=== PATIENT | male | born 1970 | race Caucasian/White ===

== ENCOUNTER 2017-04-26 19:28 | Emergency (ER) | payer OTHER ==
[~2017-04-26 19:28] MED LIST: PRILOSEC40 MG PO
--- NOTE | 2017-04-26 20:18 | ED ORDER SUMMARY ---
..... Patient: SAGRARIO TOVAR [facility]Sheet [facility] VisitID: [id number] [place] [address] 46y, M Registration Date/Time: 04/26/2017 ORDER SHEET Weight: 69.8 kg (stated) Allergies: No Known Drug Allergy GENERAL ORDERS: Eye Irrigation (20:09 04/26/2017 Betzaida SHER) (20:14 JBoardley R.N.) MEDICATION ORDERS: Alcaine Eye Drops (Solution 0.5 %) 2 drops (NOW, affected eye, left eye) (19:55 04/26/2017 kumar SHER) (Ack 19:56 JBoardley R.N.) (20:03 JBoardley R.N.) Fluorescein Eye Strips 1 strips (NOW) (19:55 [facility]2017 [facility] (Ack 19:56 JBoardley R.N.) (20:04 JBoardley R.N.) Tdap IM 0.5 mL (NOW, per protocol) (20:04 04/26/2017 JBoardley R.N. per protocol) (20:07 JBoardley R.N.) IV FLUIDS: ORDER SHEET NOTES: [Electronically signed by Grant Fitzpatrick R.N. (20:32 04/26/2017)] [Electronically signed by Tamir Hoffman DO (09:34 04/27/2017)] [Electronically locked/signed by Grant Fitzpatrick R.N. (20:32 04/26/2017)]
--- NOTE | 2017-04-26 20:18 | ED NURSING NOTES ---
Clinical Report - Nurses [facility] [address] [place] [address] 04/26/2017 19:29 [id number] TRI[facility] Triage time 19:53. Acuity: LEVEL 4. Chief Complaint: REDNESS, PAIN and FOREIGN BODY TO LEFT EYE. 19:54 04/26/17. 19:54 04/26/17. VISUAL ACUITY: Visual acuity performed: left eye 20/50 minus one letter; right eye 20/50; both eyes 20/40 minus one letter. --20:04 Grant Fitzpatrick R.N. 20:04 04/26/17. BP: 144/79. HR: 89. RR: 18. O2 saturation: 98% on room air. Temp: 98.1 F (oral). Pain level now: 02/20. --20:04 Grant Fitzpatrick R.N. Weight: 69.8 kg stated. Height/Length: 69 inches Per Patient. BMI: 22.7. --19:54 Grant Fitzpatrick R.N. Medications Omeprazole Oral. --19:55 Grant Fitzpatrick R.N. Medication/allergy information source: the patient. --20:04 Grant Fitzpatrick R.N. Allergies No Known Drug Allergy. --19:55 Grant Fitzpatrick R.N. History Arrived by private vehicle. Historian: patient. Accompanied by family. Primary physician (NONE). 19:54 04/26/17. He may have sustained an injury. 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 He has had eye discomfort. 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 SOCIAL HX: Light tobacco smoker (cigarette)- less than 1/2 a pack per day. Regular alcohol use. History of occasional drug use: marijuana. No infectious disease exposure. ABUSE ASSESSMENT: No report of abuse. FALL RISK ASSESSMENT: Fall risk assessment completed. No fall risk identified. NUTRITIONAL RISK ASSESSMENT: The nutritional risk assessment revealed no deficiencies. FUNCTIONAL ASSESSMENT: Functional assessment: no impairments noted. LEARNING NEEDS ASSESSMENT: The learning needs assessment revealed no barriers. SKIN INTEGRITY ASSESSMENT: Skin integrity risk assessment completed. No skin integrity risk identified. --20:04 Grant Fitzpatrick R.N. PAST MEDICAL HX: Immunizations: status is unknown. --20:04 Grant Fitzpatrick R.N. PROBLEMS: Costochondritis. GI Disease. Diverticulitis. Back Pain. Sciatica. Myofascial Strain. Lipoma. Sprain. Lower Extremity Pain. Atypical Chest Pain. Cellulitis. Lifestyle / Substance Problems. Last Tetanus. Tendonitis. Healing Abscess. Abscess. Acute Pain. Immunizations. Abrasion(s). Tetanus Status. Fall. Contusion. --19:55 Grant Fitzpatrick R.N. ADDITIONAL SURGERIES: Shoulder Surgery. --19:55 Grant Fitzpatrick R.N. Assessment 19:54 04/26/17. --20:04 Grant Fitzpatrick R.N. Interventions 19:54 04/26/17. 19:54 04/26/17. ID and allergy band on patient. To treatment room. --20:04 Grant Fitzpatrick R.N. PHYSICAL ASSESSMENT 19:56 04/26/17. Ambulatory to room. GENERAL / NEURO / PSYCH: Appears in pain. HEENT: ( Left eye with redness noted). CVS: Capillary refill less than 2 seconds. SKIN: Skin is warm and dry. --19:56 Grant Fitzpatrick R.N. NURSING PROGRESS NOTES 19:56 04/26/17. Two patient identifiers checked. Call light placed in reach. Side rails up x 2. Bed placed in lowest position. Brakes of bed on. --19:56 Grant Fitzpatrick R.N. 19:56 04/26/17. The plan of care for this patient has been created. Head of bed elevated. Reassurance given. Patient ready for evaluation- chart flagged and notification provided. --19:56 Grant Fitzpatrick R.N. 20:03 04/26/2017 Alcaine (Proparacaine HCl) Eye Drops 2 drop given. Given in the left eye. Allergies verified and confirmed 5 rights. (by ). --20:03 Grant Fitzpatrick R.N. 20:04/26/2017 FLUORESCEIN Opth soln 1 Strip given. Given in the left eye. Allergies verified and confirmed 5 rights. (by ). --20:04 Grant Fitzpatrick R.N. 20:07 04/26/2017 TDAP IM 0.5 mL given. (Lot#: [id number], expiration date: 03/23/2019, [employer] Instructor: sanofi pasteur). Given in the right deltoid. Allergies verified and confirmed 5 rights. Vaccine information statement provided to the patient. --20:07 Grant Fitzpatrick R.N. 20:16 04/26/17. Irrigated left eye with normal saline. Patient tolerated procedure well. --20:16 Alanis Langley, ER Tech1. DISPOSITION / DISCHARGE 20:24 04/26/17. Condition at departure: improved. The goals identified in the patient's plan of care were met. No learning barriers present. Discharge instructions provided and reviewed with the patient. Reviewed warnings. Reviewed medication(s). Treatments reviewed. Reviewed referral to an card clothier. Patient verbalized understanding. Written instructions provided in Stateless. The patient was discharged by the physician. He was discharged home and accompanied by family. He left the Emergency Department ambulatory and via private vehicle. Family member driving. FALL RISK ASSESSMENT: Fall risk assessment completed. No fall risk identified. --20:24 Grant Fitzpatrick R.N. 20:23 04/26/17. BP: 132/76. HR: 88. RR: 16. O2 saturation: 98% on room air. Temp: 98.3 F (oral). --20:24 Grant Fitzpatrick R.N. Departure time: 20:24. --20:24 Grant Fitzpatrick R.N. Locked/Released at 04/26/2017 20:32 by Grant Fitzpatrick R.N.
--- NOTE | 2017-04-26 20:18 | ED CLINICAL REPORT ---
Clinical Report - Physicians/Mid Levels [facility] [address] [place] [address] 04/26/2017 19:29 [id number] Time Seen: 19:54. Arrived- By private vehicle. Historian- patient. HISTORY OF PRESENT ILLNESS Chief Complaint: EYE REDNESS, IRRITATION and FOREIGN BODY. This started today about 1400, involves the left eye, is characterized as moderate in severity and has been constant and is still present. The patient sustained injury. This occurred at work. He probably has metallic foreign material in the left eye that fell from overhead and from grinding (states he was wearing eye protection). Moderate left eye discomfort. Moderate left eye redness. Moderate left eye irritation. REVIEW OF SYSTEMS No fever, sore throat or cough. PAST HISTORY See nurses notes. GI Disease. Diverticulitis. Back Pain. Sciatica. Myofascial Strain. Lipoma. Sprain. Lower Extremity Pain. Atypical Chest Pain. Cellulitis. Lifestyle / Substance Problems. Tendonitis. Healing Abscess. Abscess. Acute Pain. Abrasion(s). Fall. SURGERIES: Shoulder Surgery. He does not wear contact lenses. No history of diabetes mellitus. Tetanus immunization status is unknown. SOCIAL HISTORY Smoker- current status unknown. Regular alcohol use. History of drug use: marijuana. ADDITIONAL NOTES The nursing notes have been reviewed. PHYSICAL EXAM Vital Signs: 04/26/2017 20:04 BP: 144/79. HR: 89. RR: 18. O2 saturation: 98%. Temp: 98.1 F. Pain level now: 4/10. Appearance: Alert. Oriented X3. Patient in mild distress. HEENT: Nose normal. Pharynx normal. Head appears normal to external inspection. Rt Eye: Right eye exam normal. Eyes: Visual acuity noted- see nurse's notes. Eyelids everted for examination. Eyelids appear normal to inspection. Pupils equal, round and reactive to light. Funduscopic exam normal. EOMs intact. Periorbital areas appear normal to inspection. Left eye examined with slit lamp. Anterior chambers clear. Anterior chambers of normal depth. Lt Eye: Mildly injected conjunctiva. A single small particulate corneal foreign body is present inferiorly and laterally. No subconjunctival hemorrhage, conjunctival foreign body or injury to the sclera. Neck: Neck supple. Normal inspection. CVS: Normal heart rate and rhythm. Heart sounds normal. Respiratory: No respiratory distress. Breath sounds normal. Skin: No rash. Extremities: Extremities negative. Neuro: Oriented X 3. Mood/affect normal. No motor deficit. PROGRESS AND PROCEDURES Removal of Eye Foreign Body: After topical anesthesia with 2 drops of Proparacaine, a single foreign body was successfully removed from the left cornea using the slit lamp (with magnification), a moistened sterile cotton swab and irrigation, fluorescein and a Wood's lamp. There were no complications encountered. The patient was cooperative. Course of Care: Very tiny particulate removed o/w no evident injury. No evident globe penetration. He was wearing eye protection and thus high velocity injury is unlikely. Patient/family counseled. Old medical records reviewed. Patient has had multiple ED visits. Disposition: Discharged. Condition: stable and improved. CLINICAL IMPRESSION Removed corneal foreign body left eye. No rust ring. Essential hypertension. Chronic substance abuse- tobacco (cigarettes), marijuana. No intoxication, delusions, hallucinations or perceptual disturbances. INSTRUCTIONS Rest. Do not work for two days. Drink plenty of fluids. Do not smoke. Seek medical help to quit smoking. Warnings: Further evaluation is necessary in order to conduct further tests. It is very important to follow up with a physician. CONTROLLED SUBSTANCE WARNINGS. GENERAL WARNINGS: Return or contact your physician immediately if your condition worsens or changes unexpectedly, if not improving as expected, or if other problems arise. Your Current Medications: CONTINUE TAKING THE FOLLOWING MEDICATIONS: Omeprazole Oral. Prescription Medications: Hydrocodone/APAP 5mg / 325mg: take 1-2 orally every 6 hours as needed for pain. Dispense ten (10). No refill. Sulfacetamide ophthalmic solution 10% : Instill 2 drops into affected eye every 2 hours while awake for 1 week. Dispense fifteen (15) mL. No refills. OTC Medications: Motrin (available over the counter): take according to label instructions. Follow-up: Screening today revealed the patient's blood pressure to be in the hypertensive range. The patient should follow up with a primary care provider for blood pressure management. Follow-up with: Andre Stubbs MD, Ophthalmology, , [facility], [address] [place] [address]; Debra Morales MD, Ophthalmology, [facility], [address] [place] [address] - [address], [place] [id number] Follow up tomorrow if not better. (Electronically signed by Tamir Hoffman DO 04/27/2017 9:34)
--- NOTE | 2017-04-26 20:18 | ED CLINICAL REPORT ---
Clinical Report - Physicians/Mid Levels [facility] [address] [place] [address] 04/26/2017 19:29 [id number] Time Seen: 19:54. Arrived- By private vehicle. Historian- patient. HISTORY OF PRESENT ILLNESS Chief Complaint: EYE REDNESS, IRRITATION and FOREIGN BODY. This started today about 1400, involves the left eye, is characterized as moderate in severity and has been constant and is still present. The patient sustained injury. This occurred at work. He probably has metallic foreign material in the left eye that fell from overhead and from grinding (states he was wearing eye protection). Moderate left eye discomfort. Moderate left eye redness. Moderate left eye irritation. REVIEW OF SYSTEMS No fever, sore throat or cough. PAST HISTORY See nurses notes. GI Disease. Diverticulitis. Back Pain. Sciatica. Myofascial Strain. Lipoma. Sprain. Lower Extremity Pain. Atypical Chest Pain. Cellulitis. Lifestyle / Substance Problems. Tendonitis. Healing Abscess. Abscess. Acute Pain. Abrasion(s). Fall. SURGERIES: Shoulder Surgery. He does not wear contact lenses. No history of diabetes mellitus. Tetanus immunization status is unknown. SOCIAL HISTORY Smoker- current status unknown. Regular alcohol use. History of drug use: marijuana. ADDITIONAL NOTES The nursing notes have been reviewed. PHYSICAL EXAM Vital Signs: 04/26/2017 20:04 BP: 144/79. HR: 89. RR: 18. O2 saturation: 98%. Temp: 98.1 F. Pain level now: 4/10. Appearance: Alert. Oriented X3. Patient in mild distress. HEENT: Nose normal. Pharynx normal. Head appears normal to external inspection. Rt Eye: Right eye exam normal. Eyes: Visual acuity noted- see nurse's notes. Eyelids everted for examination. Eyelids appear normal to inspection. Pupils equal, round and reactive to light. Funduscopic exam normal. EOMs intact. Periorbital areas appear normal to inspection. Left eye examined with slit lamp. Anterior chambers clear. Anterior chambers of normal depth. Lt Eye: Mildly injected conjunctiva. A single small particulate corneal foreign body is present inferiorly and laterally. No subconjunctival hemorrhage, conjunctival foreign body or injury to the sclera. Neck: Neck supple. Normal inspection. CVS: Normal heart rate and rhythm. Heart sounds normal. Respiratory: No respiratory distress. Breath sounds normal. Skin: No rash. Extremities: Extremities negative. Neuro: Oriented X 3. Mood/affect normal. No motor deficit. PROGRESS AND PROCEDURES Removal of Eye Foreign Body: After topical anesthesia with 2 drops of Proparacaine, a single foreign body was successfully removed from the left cornea using the slit lamp (with magnification), a moistened sterile cotton swab and irrigation, fluorescein and a Wood's lamp. There were no complications encountered. The patient was cooperative. Course of Care: Very tiny particulate removed o/w no evident injury. No evident globe penetration. He was wearing eye protection and thus high velocity injury is unlikely. Patient/family counseled. Old medical records reviewed. Patient has had multiple ED visits. Disposition: Discharged. Condition: stable and improved. CLINICAL IMPRESSION Removed corneal foreign body left eye. No rust ring. Essential hypertension. Chronic substance abuse- tobacco (cigarettes), marijuana. No intoxication, delusions, hallucinations or perceptual disturbances. INSTRUCTIONS Rest. Do not work for two days. Drink plenty of fluids. Do not smoke. Seek medical help to quit smoking. Warnings: Further evaluation is necessary in order to conduct further tests. It is very important to follow up with a physician. CONTROLLED SUBSTANCE WARNINGS. GENERAL WARNINGS: Return or contact your physician immediately if your condition worsens or changes unexpectedly, if not improving as expected, or if other problems arise. Your Current Medications: CONTINUE TAKING THE FOLLOWING MEDICATIONS: Omeprazole Oral. Prescription Medications: Hydrocodone/APAP 5mg / 325mg: take 1-2 orally every 6 hours as needed for pain. Dispense ten (10). No refill. Sulfacetamide ophthalmic solution 10% : Instill 2 drops into affected eye every 2 hours while awake for 1 week. Dispense fifteen (15) mL. No refills. OTC Medications: Motrin (available over the counter): take according to label instructions. Follow-up: Screening today revealed the patient's blood pressure to be in the hypertensive range. The patient should follow up with a primary care provider for blood pressure management. Follow-up with: Andre Stubbs MD, Ophthalmology, , [facility], [address] [place] [address]; Debra Morales MD, Ophthalmology, [facility], [address] [place] [address] - [address], [place] [address] Follow up tomorrow if not better. (Electronically signed by Tamir Hoffman DO 04/27/2017 9:34)
--- NOTE | 2017-04-26 20:18 | ED NURSING NOTES ---
Clinical Report - Nurses [facility] [address] [place] [address] 04/26/2017 19:29 [id number] TRI[facility] Triage time 19:53. Acuity: LEVEL 4. Chief Complaint: REDNESS, PAIN and FOREIGN BODY TO LEFT EYE. 19:54 04/26/17. 19:54 04/26/17. VISUAL ACUITY: Visual acuity performed: left eye 20/50 minus one letter; right eye 20/50; both eyes 20/40 minus one letter. --20:04 Grant Fitzpatrick R.N. 20:04 04/26/17. BP: 144/79. HR: 89. RR: 18. O2 saturation: 98% on room air. Temp: 98.1 F (oral). Pain level now: 02/20. --20:04 Grant Fitzpatrick R.N. Weight: 69.8 kg stated. Height/Length: 69 inches Per Patient. BMI: 22.7. --19:54 Grant Fitzpatrick R.N. Medications Omeprazole Oral. --19:55 Grant Fitzpatrick R.N. Medication/allergy information source: the patient. --20:04 Grant Fitzpatrick R.N. Allergies No Known Drug Allergy. --19:55 Grant Fitzpatrick R.N. History Arrived by private vehicle. Historian: patient. Accompanied by family. Primary physician (NONE). 19:54 04/26/17. He may have sustained an injury. 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 He has had eye discomfort. 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 SOCIAL HX: Light tobacco smoker (cigarette)- less than 1/2 a pack per day. Regular alcohol use. History of occasional drug use: marijuana. No infectious disease exposure. ABUSE ASSESSMENT: No report of abuse. FALL RISK ASSESSMENT: Fall risk assessment completed. No fall risk identified. NUTRITIONAL RISK ASSESSMENT: The nutritional risk assessment revealed no deficiencies. FUNCTIONAL ASSESSMENT: Functional assessment: no impairments noted. LEARNING NEEDS ASSESSMENT: The learning needs assessment revealed no barriers. SKIN INTEGRITY ASSESSMENT: Skin integrity risk assessment completed. No skin integrity risk identified. --20:04 Grant Fitzpatrick R.N. PAST MEDICAL HX: Immunizations: status is unknown. --20:04 Grant Fitzpatrick R.N. PROBLEMS: Costochondritis. GI Disease. Diverticulitis. Back Pain. Sciatica. Myofascial Strain. Lipoma. Sprain. Lower Extremity Pain. Atypical Chest Pain. Cellulitis. Lifestyle / Substance Problems. Last Tetanus. Tendonitis. Healing Abscess. Abscess. Acute Pain. Immunizations. Abrasion(s). Tetanus Status. Fall. Contusion. --19:55 Grant Fitzpatrick R.N. ADDITIONAL SURGERIES: Shoulder Surgery. --19:55 Grant Fitzpatrick R.N. Assessment 19:54 04/26/17. --20:04 Grant Fitzpatrick R.N. Interventions 19:54 04/26/17. 19:54 04/26/17. ID and allergy band on patient. To treatment room. --20:04 Grant Fitzpatrick R.N. PHYSICAL ASSESSMENT 19:56 04/26/17. Ambulatory to room. GENERAL / NEURO / PSYCH: Appears in pain. HEENT: ( Left eye with redness noted). CVS: Capillary refill less than 2 seconds. SKIN: Skin is warm and dry. --19:56 Grant Fitzpatrick R.N. NURSING PROGRESS NOTES 19:56 04/26/17. Two patient identifiers checked. Call light placed in reach. Side rails up x 2. Bed placed in lowest position. Brakes of bed on. --19:56 Grant Fitzpatrick R.N. 19:56 04/26/17. The plan of care for this patient has been created. Head of bed elevated. Reassurance given. Patient ready for evaluation- chart flagged and notification provided. --19:56 Grant Fitzpatrick R.N. 20:03 04/26/2017 Alcaine (Proparacaine HCl) Eye Drops 2 drop given. Given in the left eye. Allergies verified and confirmed 5 rights. (by ). --20:03 Grant Fitzpatrick R.N. 20:04/26/2017 FLUORESCEIN Opth soln 1 Strip given. Given in the left eye. Allergies verified and confirmed 5 rights. (by ). --20:04 Grant Fitzpatrick R.N. 20:07 04/26/2017 TDAP IM 0.5 mL given. (Lot#: [id number], expiration date: 03/23/2019, Denitrator Operator: sanofi pasteur). Given in the right deltoid. Allergies verified and confirmed 5 rights. Vaccine information statement provided to the patient. --20:07 Grant Fitzpatrick R.N. 20:16 04/26/17. Irrigated left eye with normal saline. Patient tolerated procedure well. --20:16 Alanis Langley, ER Tech1. DISPOSITION / DISCHARGE 20:24 04/26/17. Condition at departure: improved. The goals identified in the patient's plan of care were met. No learning barriers present. Discharge instructions provided and reviewed with the patient. Reviewed warnings. Reviewed medication(s). Treatments reviewed. Reviewed referral to an bander. Patient verbalized understanding. Written instructions provided in [place]. The patient was discharged by the physician. He was discharged home and accompanied by family. He left the Emergency Department ambulatory and via private vehicle. Family member driving. FALL RISK ASSESSMENT: Fall risk assessment completed. No fall risk identified. --20:24 Grant Fitzpatrick R.N. 20:23 04/26/17. BP: 132/76. HR: 88. RR: 16. O2 saturation: 98% on room air. Temp: 98.3 F (oral). --20:24 Grant Fitzpatrick R.N. Departure time: 20:24. --20:24 Grant Fitzpatrick R.N. Locked/Released at 04/26/2017 20:32 by Grant Fitzpatrick R.N.
--- NOTE | 2017-04-26 20:18 | ED ORDER SUMMARY ---
..... Patient: SAGRARIO TOVAR OrderSheet [facility] VisitID: [id number] [place] [address] 46y, M Registration Date/Time: 04/26/2017 ORDER SHEET Weight: 69.8 kg (stated) Allergies: No Known Drug Allergy GENERAL ORDERS: Eye Irrigation (20:09 04/26/2017 Betzaida SHER) (20:14 JBoardley R.N.) MEDICATION ORDERS: Alcaine Eye Drops (Solution 0.5 %) 2 drops (NOW, affected eye, left eye) (19:55 04/26/2017 kumar SHER) (Ack 19:56 JBoardley R.N.) (20:03 JBoardley R.N.) Fluorescein Eye Strips 1 strips (NOW) (19:55 04/26/2017 [facility] (Ack 19:56 JBoardley R.N.) (20:04 JBoardley R.N.) Tdap IM 0.5 mL (NOW, per protocol) (20:04 04/26/2017 JBoardley R.N. per protocol) (20:07 JBoardley R.N.) IV FLUIDS: ORDER SHEET NOTES: [Electronically signed by Grant Fitzpatrick R.N. (20:32 04/26/2017)] [Electronically signed by Tamir Hoffman DO (09:34 04/27/2017)] [Electronically locked/signed by Grant Fitzpatrick R.N. (20:32 04/26/2017)]
--- NOTE | 2017-04-27 09:34 | ED DISCHARGE INSTRUCTIONS ---
Patient: SAGRARIO TOVAR General Instructions [facility] VisitID: [id number] [place] [id number], M Registration Date/Time: 04/26/2017 Removed corneal foreign body left eye. No rust ring. Essential hypertension. Chronic substance abuse- tobacco (cigarettes), marijuana. No intoxication, delusions, hallucinations or perceptual disturbances. INSTRUCTIONS Rest. Do not work for two days. Drink plenty of fluids. Do not smoke. Seek medical help to quit smoking. Warnings: Further evaluation is necessary in order to conduct further tests. It is very important to follow up with a physician. CONTROLLED SUBSTANCE WARNINGS. GENERAL WARNINGS: Return or contact your physician immediately if your condition worsens or changes unexpectedly, if not improving as expected, or if other problems arise. Your Current Medications: CONTINUE TAKING THE FOLLOWING MEDICATIONS: Omeprazole Oral. Prescription Medications: Hydrocodone/APAP 5mg / 325mg: take 1-2 orally every 6 hours as needed for pain. Dispense ten (10). No refill. Sulfacetamide ophthalmic solution 10% : Instill 2 drops into affected eye every 2 hours while awake for 1 week. Dispense fifteen (15) mL. No refills. OTC Medications: Motrin (available over the counter): take according to label instructions. Follow-up: Screening today revealed the patient's blood pressure to be in the hypertensive range. The patient should follow up with a primary care provider for blood pressure management. Follow-up with: Andre Stubbs MD, Ophthalmology, , [facility], [address] [place] [address]; Debra Morales MD, Ophthalmology, [facility], [address] [place] [address] - [address] [address] Follow up tomorrow if not better. ADDITIONAL INFORMATION Particle Removed From Eye [Corneal F.B.] A particle got into your eye and stuck to the cornea (the clear part in front of the eye). Your doctor has removed this particle. The cornea is very sensitive and may still hurt for another one to two days while it heals. If a metal particle was in your eye, a "rust ring" may have formed. This may require a second visit for complete removal. Home Care: A cold pack (ice in a plastic bag, wrapped in a towel) may be applied over the eye for 20 minutes at a time to reduce pain. You may use acetaminophen (Tylenol) or ibuprofen (Motrin, Advil) to control pain, unless another pain medicine was prescribed. [NOTE: If you have chronic liver or kidney disease or ever had a stomach ulcer or GI bleeding, talk with your doctor before using these medicines.] If an EYE PATCH was applied: You may place the ice pack directly over the eye-patch. If you were given a return appointment for patch removal and re-exam, do not miss it. An eye patch should not be left in place for more than 48 hours, unless advised to do so by your doctor. DO NOT DRIVE a motor vehicle or operate machinery with the patch in place since you will have difficulty in judging distances with only one eye. If eye drops or ointment was prescribed, take as directed. Follow Up: If no patch was used but the pain continues for more than 48 hours, you should have another exam. Return to this facility or contact the referral doctor to arrange this. If your eye was patched and if you were asked to remove the patch yourself, see your doctor or return to this facility if your pain is still present after removal. If you were given a return appointment for patch removal and re-exam, do not miss this. It could be harmful if the patch remains in place longer than advised. Get Prompt Medical Attention if any of the following occur: Increasing eye pain or pain that does not improve after 24 hours Discharge from the eye Redness of the eye or swelling of the eyelids Worsening vision High Blood Pressure -- To Be Confirmed [No Tx] Your blood pressure was higher today than normal. Sometimes anxiety or pain can cause a temporary rise in blood pressure that later returns to normal. If your blood pressure is high on one measurement, this does not mean that you have hypertension (a chronic illness). However, you must have your blood pressure measured again within the next few days to find out if its still high. A normal blood pressure is 120/80 or less. The first (top) number is the "systolic" pressure. The second (bottom) number is the "diastolic" pressure. Hypertension exists when either the top number is 140 or higher, OR the bottom number is 90 or higher on repeated measurements. Blood pressure in the range of 120-140 (systolic) or 80-89 (diastolic) is considered "pre-hypertension". This means your are at risk for getting hypertension. You should have regular blood pressure checks to be sure your blood pressure is not rising. Home Care: Measure your blood pressure on 3 different days and write down the results. This can be done at your doctor's office or this facility. Some pharmacies and grocery stores offer automated blood pressure machines for your use. Follow Up: If your blood pressure is "high" (over 120/80) on 2 out of 3 days, you will need to follow up with your doctor for further evaluation and treatment. DO NOT PUT THIS OFF! Untreated high blood pressure increases the risk for heart attack, also known as acute myocardial infarction, or AMI, and stroke. It is a treatable condition. Get Prompt Medical Attention if any of the following occur: Chest pain or shortness of breath Severe headache Throbbing or rushing sound in the ears Nosebleed Sudden severe abdominal pain Extreme drowsiness, confusion or fainting Dizziness or vertigo (dizziness with spinning sensation) Weakness of an arm or leg or one side of the face Difficulty with speech or vision Marijuana Abuse Marijuana is the most widely used illegal drug in the [place]. It is called by various names such as pot, weed, blunts, grass, reefer, ganja, hash, hashish. It is usually smoked but can be mixed with foods or brewed as a tea. It is sometimes sold with PCP (Taqueria Dust) or amphetamine mixed in it. These drugs can cause other harmful side effects. Marijuana can cause the following effects: Changes in mood (stimulated, happy, drowsy, depressed, paranoid) Hallucinations Increased heart rate and blood pressure Increased appetite Time distortion, difficulty concentrating, impaired memory Lung damage (similar to cigarettes with chronic cough, wheezing, frequent colds and bronchitis) You can become psychologically dependent on marijuana. That means the craving to use the drug is emotional or psychological rather than due to physical withdrawal. Is Marijuana Running Your Life? Here are some of the signs: Relying on marijuana to feel good, forget problems, deal with stress or to relax Wanting to be alone most of the time or only with others who use drugs Losing interest in things that used to be important Changes in school or job performance or attendance Spending a lot of time thinking about how to get marijuana Stealing or selling your things so you can buy marijuana Unable to stop using even though you may want to quit Increasing anxiety, anger,or depression Sleeping too much, changes in eating habits (weight loss or gain) Needing to use more to get the same effect Home Care Once you have become addicted to any drug, quitting is hard to do. Most people find they can't quit without help. So, dont try to do this alone. Talk to someone you trust who can support you. Seek professional help. Avoid people and places where drugs are used. That only increases the temptation to use. Follow Up with your doctor or as advised by our staff. For more information or a referral to a treatment center in your area, contact: Your local mental health center or the National Alcohol and Substance Abuse Information Center (001)-607-2079 www.addictioncareThin [employer] ASA.com National [place] on Alcoholism and Drug Dependence 969-586-BSDI www.ncadd.org Marijuana Anonymous 697-952-8838 www.marijuana-anonymous.org Get Prompt Medical Attention if any of the following occur: You feel extreme depression, fear, anxiety, or anger toward yourself or others You feel out of control You feel that you may try to harm yourself or another How To Quit Smoking Smoking is one of the hardest habits to break. About half of all those who have ever smoked have been able to quit, and most of those (about 70%) who still smoke want to quit. Here are some of the best ways to stop smoking. Keep Trying: It takes most smokers about 8 tries before they are finally able to fully quit. So, the more often you try and fail, the better your chance of quitting the next time! So, don't give up! Go Cold [place]: Most ex-smokers quit cold turkey. Trying to cut back gradually doesn't seem to work as well, perhaps because it continues the smoking habit. Also, it is possible to fool yourself by inhaling more while smoking fewer cigarettes. This results in the same amount of nicotine in your body! Get Support: Support programs can make an important difference, especially for the heavy smoker. These groups offer lectures, methods to change your behavior and peer support. Call the free national Quitline for more information. 495-LHCP-XLB (752-921-1369). Low-cost or free programs are offered by many hospitals, local chapters of the [place] [employer] (941-772-9638) and the [place] [employer] (925-884-0833). Support at home is important too. Non-smokers can help by offering praise and encouragement. If the smoker fails to quit, encourage them to try again! Gzgv-Llc-Adhgmrv Medicines: For those who can't quit on their own, Nicotine Replacement Therapy (NRT) may make quitting much easier. Certain aids such as the nicotine patch, gum and lozenge are available without a prescription. However, it is best to use these under the guidance of your doctor. The skin patch provides a steady supply of nicotine to the body. Nicotine gum and lozenge gives temporary bursts of low levels of nicotine. Both methods take the edge off the craving for cigarettes. WARNING: If you feel symptoms of nicotine overdose, such as nausea, vomiting, dizziness, weakness, or fast heartbeat, stop using these and see your doctor. Prescription Medicines: After evaluating your smoking patterns and prior attempts at quitting, your doctor may offer a prescription medicine such as bupropion (Zyban, Wellbutrin), varenicline (Chantix, Champix), a niocotine inhaler or nasal spray. Each has its unique advantage and side effects which your doctor can review with you. Health Benefits Of Quitting: The benefits of quitting start right away and keep improving the longer you go without smokin minutes: blood pressure and pulse return to normal 8 hours: oxygen levels return to normal 2 days: ability to smell and taste begins to improve as damaged nerves start to regrow 2-3 weeks: circulation and lung function improves 1-9 months: decreased cough, congestion and shortness of breath; less tired 1 year: risk of heart attack decreases by half 5 years: risk of lung cancer decreases by half; risk of stroke becomes the same as a non-smoker For information about how to quit smoking, visit the following links: National Cancer [place] , Clearing the Air, Quit Smoking Today - an online booklet. http://www.smokefree.gov/pubs/clearing_the_air.pdf Smokefree.gov http://smokefree.gov/ QuitNet http://www.quitnet.com/ Hydrocodone Bitartrate, Acetaminophen Oral tablet What is this medicine? ACETAMINOPHEN; HYDROCODONE (a set a TRINIDAD saniya fen; patrica droe KOE done) is a pain reliever. It is used to treat mild to moderate pain. How should I use this medicine? Take this medicine by mouth. Swallow it with a full glass of water. Follow the directions on the prescription label. If the medicine upsets your stomach, take the medicine with food or milk. Do not take more than you are told to take. Talk to your sap bw developer regarding the use of this medicine in children. This medicine is not approved for use in children. What side effects may I notice from receiving this medicine? Side effects that you should report to your doctor or health client care manager as soon as possible: allergic reactions like skin rash, itching or hives, swelling of the face, lips, or tongue breathing problems confusion feeling faint or lightheaded, falls stomach pain yellowing of the eyes or skin Side effects that usually do not require medical attention (report to your doctor or health client care manager if they continue or are bothersome): nausea, vomiting stomach upset What may interact with this medicine? alcohol antihistamines isoniazid medicines for depression, anxiety, or psychotic disturbances medicines for sleep muscle relaxants naltrexone narcotic medicines (opiates) for pain phenobarbital ritonavir tramadol What if I miss a dose? If you miss a dose, take it as soon as you can. If it is almost time for your next dose, take only that dose. Do not take double or extra doses. Where should I keep my medicine? Keep out of the reach of children. This medicine can be abused. Keep your medicine in a safe place to protect it from theft. Do not share this medicine with anyone. Selling or giving away this medicine is dangerous and against the law. Store at room temperature between 15 and 30 degrees C (59 and 86 degrees F). Protect from light. Keep container tightly closed. Throw away any unused medicine after the expiration date. Discard unused medicine and used packaging carefully. Pets and children can be harmed if they find used or lost packages. What should I tell my health care provider before I take this medicine? They need to know if you have any of these conditions: brain tumor Crohn's disease, inflammatory bowel disease, or ulcerative colitis drink more than 3 alcohol-containing drinks per day drug abuse or addiction head injury heart or circulation problems kidney disease or problems going to the bathroom liver disease lung disease, asthma, or breathing problems an unusual or allergic reaction to acetaminophen, hydrocodone, other opioid analgesics, other medicines, foods, dyes, or preservatives or trying to get breast-feeding What should I watch for while using this medicine? Tell your doctor or health client care manager if your pain does not go away, if it gets worse, or if you have new or a different type of pain. You may develop tolerance to the medicine. Tolerance means that you will need a higher dose of the medicine for pain relief. Tolerance is normal and is expected if you take the medicine for a long time. Do not suddenly stop taking your medicine because you may develop a severe reaction. Your body becomes used to the medicine. This does NOT mean you are addicted. Addiction is a behavior related to getting and using a drug for a non-medical reason. If you have pain, you have a medical reason to take pain medicine. Your doctor will tell you how much medicine to take. If your doctor wants you to stop the medicine, the dose will be slowly lowered over time to avoid any side effects. You may get drowsy or dizzy when you first start taking the medicine or change doses. Do not drive, use machinery, or do anything that may be dangerous until you know how the medicine affects you. Stand or sit up slowly. There are different types of narcotic medicines (opiates) for pain. If you take more than one type at the same time, you may have more side effects. Give your health care provider a list of all medicines you use. Your doctor will tell you how much medicine to take. Do not take more medicine than directed. Call emergency for help if you have problems breathing. The medicine will cause constipation. Try to have a bowel movement at least every 2 to 3 days. If you do not have a bowel movement for 3 days, call your doctor or health client care manager. Too much acetaminophen can be very dangerous. Do not take Tylenol (acetaminophen) or medicines that contain acetaminophen with this medicine. Many non-prescription medicines contain acetaminophen. Always read the labels carefully. Sulfacetamide Sodium Eye drops, solution What is this medicine? SULFACETAMIDE (sul fa SEE ta mide) is a sulfonamide antibiotic. It is used to treat eye infections. How should I use this medicine? This medicine is only for use in the eye. Do not take by mouth. Follow the directions on the prescription label. Wash hands before and after use. Tilt your head back slightly and pull your lower eyelid down with your index finger to form a pouch. Try not to touch the tip of the dropper to your eye, fingertips, or any other surface. Squeeze the prescribed number of drops into the pouch. Close the eye gently to spread the drops. Your vision may blur for a few minutes. Use your doses at regular intervals. Do not use your medicine more often than directed. Finish the full course prescribed by your doctor or health client care manager even if you think your condition is better. Talk to your sap bw developer regarding the use of this medicine in children. Special care may be needed. What side effects may I notice from receiving this medicine? Side effects that you should report to your doctor or health client care manager as soon as possible: blurred vision that does not go away burning, blistering, peeling, stinging, or itching of the eyes or eyelids, skin or mouth eye redness, swelling, or pain Side effects that usually do not require medical attention (report to your doctor or health client care manager if they continue or are bothersome): blurred vision for a few moments after application What may interact with this medicine? eye products that contain silver What if I miss a dose? If you miss a dose, use it as soon as you can. If it is almost time for your next dose, use only that dose. Do not use double or extra doses. Where should I keep my medicine? Keep out of the reach of children. Store between 2 and 30 degrees C (36 and 86 degrees F). Do not freeze. Throw away any unused eye products after the expiration date. What should I tell my health care provider before I take this medicine? They need to know if you have any of these conditions: eye injury or eye surgery an unusual or allergic reaction to sulfacetamide, sulfa drugs, other medicines, foods, dyes, or preservatives or trying to get breast-feeding What should I watch for while using this medicine? Tell your doctor or health client care manager if your symptoms do not get better in 2 to 3 days. A full course of treatment is usually 7 to 10 days. If you get any sign of an allergic reaction, stop using your eye product and call your doctor or health client care manager. Wear sunglasses if this medicine makes your eyes more sensitive to light. Keep out of the sun, or wear protective clothing outdoors and use a sunscreen. Do not use sun lamps or sun tanning beds or booths. Ibuprofen Oral tablet What is this medicine? IBUPROFEN (eye BYOO proe fen) is a non-steroidal anti-inflammatory drug (NSAID). It is used for dental pain, fever, headaches or migraines, osteoarthritis, rheumatoid arthritis, or painful monthly periods. It can also relieve minor aches and pains caused by a cold, flu, or sore throat. How should I use this medicine? Take this medicine by mouth with a glass of water. Follow the directions on the prescription label. Take this medicine with food if your stomach gets upset. Try to not lie down for at least 10 minutes after you take the medicine. Take your medicine at regular intervals. Do not take your medicine more often than directed. A special MedGuide will be given to you by the pharmacist with each prescription and refill. Be sure to read this information carefully each time. Talk to your sap bw developer regarding the use of this medicine in children. Special care may be needed. What side effects may I notice from receiving this medicine? Side effects that you should report to your doctor or health client care manager as soon as possible: allergic reactions like skin rash, itching or hives, swelling of the face, lips, or tongue black or bloody stools, blood in the urine or in vomit breathing problems changes in vision chest pain general ill feeling or flu-like symptoms nausea or vomiting redness, blistering, peeling or loosening of the skin, including inside the mouth slurred speech or weakness on one side of the body stomach pain unexplained weight gain or swelling unusually weak or tired yellowing of eyes or skin Side effects that usually do not require medical attention (report to your doctor or health client care manager if they continue or are bothersome): constipation or diarrhea dizziness gas or heartburn stomach upset What may interact with this medicine? Do not take this medicine with any of the following medications: cidofovir ketorolac methotrexate pemetrexed This medicine may also interact with the following medications: alcohol aspirin diuretics lithium other drugs for inflammation like prednisone warfarin What if I miss a dose? If you miss a dose, take it as soon as you can. If it is almost time for your next dose, take only that dose. Do not take double or extra doses. Where should I keep my medicine? Keep out of the reach of children. Store at room temperature between 15 and 30 degrees C (59 and 86 degrees F). Keep container tightly closed. Throw away any unused medicine after the expiration date. What should I tell my health care provider before I take this medicine? They need to know if you have any of these conditions: asthma cigarette smoker drink more than 3 alcohol containing drinks a day heart disease or circulation problems such as heart failure or leg edema (fluid retention) high blood pressure kidney disease liver disease stomach bleeding or ulcers an unusual or allergic reaction to ibuprofen, aspirin, other NSAIDS, other medicines, foods, dyes, or preservatives or trying to get breast-feeding What should I watch for while using this medicine? Tell your doctor or healthcare professional if your symptoms do not start to get better or if they get worse. This medicine does not prevent heart attack or stroke. In fact, this medicine may increase the chance of a heart attack or stroke. The chance may increase with longer use of this medicine and in people who have heart disease. If you take aspirin to prevent heart attack or stroke, talk with your doctor or health client care manager. Do not take other medicines that contain aspirin, ibuprofen, or naproxen with this medicine. Side effects such as stomach upset, nausea, or ulcers may be more likely to occur. Many medicines available without a prescription should not be taken with this medicine. This medicine can cause ulcers and bleeding in the stomach and intestines at any time during treatment. Ulcers and bleeding can happen without warning symptoms and can cause . To reduce your risk, do not smoke cigarettes or drink alcohol while you are taking this medicine. You may get drowsy or dizzy. Do not drive, use machinery, or do anything that needs mental alertness until you know how this medicine affects you. Do not stand or sit up quickly, especially if you are an older patient. This reduces the risk of dizzy or fainting spells. This medicine can cause you to bleed more easily. Try to avoid damage to your teeth and gums when you brush or floss your teeth. You have been given the following additional information: Corneal Foreign Body, Removed Hypertension, To Be Confirmed Marijuana Abuse Smoking Cessation Hydrocodone Bitartrate, Acetaminophen Oral tablet Sulfacetamide Sodium Eye drops, solution Ibuprofen Oral tablet Rest. Do not work for two days. (Electronically signed by Tamir Hoffman DO 04/27/2017 9:34)
--- NOTE | 2017-04-27 09:34 | ED DISCHARGE INSTRUCTIONS ---
Patient: SAGRARIO TOVAR General Instructions [facility] VisitID: [id number] Radha [place] [id number], M Registration Date/Time: 04/26/2017 Removed corneal foreign body left eye. No rust ring. Essential hypertension. Chronic substance abuse- tobacco (cigarettes), marijuana. No intoxication, delusions, hallucinations or perceptual disturbances. INSTRUCTIONS Rest. Do not work for two days. Drink plenty of fluids. Do not smoke. Seek medical help to quit smoking. Warnings: Further evaluation is necessary in order to conduct further tests. It is very important to follow up with a physician. CONTROLLED SUBSTANCE WARNINGS. GENERAL WARNINGS: Return or contact your physician immediately if your condition worsens or changes unexpectedly, if not improving as expected, or if other problems arise. Your Current Medications: CONTINUE TAKING THE FOLLOWING MEDICATIONS: Omeprazole Oral. Prescription Medications: Hydrocodone/APAP 5mg / 325mg: take 1-2 orally every 6 hours as needed for pain. Dispense ten (10). No refill. Sulfacetamide ophthalmic solution 10% : Instill 2 drops into affected eye every 2 hours while awake for 1 week. Dispense fifteen (15) mL. No refills. OTC Medications: Motrin (available over the counter): take according to label instructions. Follow-up: Screening today revealed the patient's blood pressure to be in the hypertensive range. The patient should follow up with a primary care provider for blood pressure management. Follow-up with: Andre Stubbs MD, Ophthalmology, , [facility], [address] [place] [address]; Debra Morales MD, Ophthalmology, [facility], [address] [place] [address] - [address] [address] Follow up tomorrow if not better. ADDITIONAL INFORMATION Particle Removed From Eye [Corneal F.B.] A particle got into your eye and stuck to the cornea (the clear part in front of the eye). Your doctor has removed this particle. The cornea is very sensitive and may still hurt for another one to two days while it heals. If a metal particle was in your eye, a "rust ring" may have formed. This may require a second visit for complete removal. Home Care: A cold pack (ice in a plastic bag, wrapped in a towel) may be applied over the eye for 20 minutes at a time to reduce pain. You may use acetaminophen (Tylenol) or ibuprofen (Motrin, Advil) to control pain, unless another pain medicine was prescribed. [NOTE: If you have chronic liver or kidney disease or ever had a stomach ulcer or GI bleeding, talk with your doctor before using these medicines.] If an EYE PATCH was applied: You may place the ice pack directly over the eye-patch. If you were given a return appointment for patch removal and re-exam, do not miss it. An eye patch should not be left in place for more than 48 hours, unless advised to do so by your doctor. DO NOT DRIVE a motor vehicle or operate machinery with the patch in place since you will have difficulty in judging distances with only one eye. If eye drops or ointment was prescribed, take as directed. Follow Up: If no patch was used but the pain continues for more than 48 hours, you should have another exam. Return to this facility or contact the referral doctor to arrange this. If your eye was patched and if you were asked to remove the patch yourself, see your doctor or return to this facility if your pain is still present after removal. If you were given a return appointment for patch removal and re-exam, do not miss this. It could be harmful if the patch remains in place longer than advised. Get Prompt Medical Attention if any of the following occur: Increasing eye pain or pain that does not improve after 24 hours Discharge from the eye Redness of the eye or swelling of the eyelids Worsening vision High Blood Pressure -- To Be Confirmed [No Tx] Your blood pressure was higher today than normal. Sometimes anxiety or pain can cause a temporary rise in blood pressure that later returns to normal. If your blood pressure is high on one measurement, this does not mean that you have hypertension (a chronic illness). However, you must have your blood pressure measured again within the next few days to find out if its still high. A normal blood pressure is 120/80 or less. The first (top) number is the "systolic" pressure. The second (bottom) number is the "diastolic" pressure. Hypertension exists when either the top number is 140 or higher, OR the bottom number is 90 or higher on repeated measurements. Blood pressure in the range of 120-140 (systolic) or 80-89 (diastolic) is considered "pre-hypertension". This means your are at risk for getting hypertension. You should have regular blood pressure checks to be sure your blood pressure is not rising. Home Care: Measure your blood pressure on 3 different days and write down the results. This can be done at your doctor's office or this facility. Some pharmacies and grocery stores offer automated blood pressure machines for your use. Follow Up: If your blood pressure is "high" (over 120/80) on 2 out of 3 days, you will need to follow up with your doctor for further evaluation and treatment. DO NOT PUT THIS OFF! Untreated high blood pressure increases the risk for heart attack, also known as acute myocardial infarction, or AMI, and stroke. It is a treatable condition. Get Prompt Medical Attention if any of the following occur: Chest pain or shortness of breath Severe headache Throbbing or rushing sound in the ears Nosebleed Sudden severe abdominal pain Extreme drowsiness, confusion or fainting Dizziness or vertigo (dizziness with spinning sensation) Weakness of an arm or leg or one side of the face Difficulty with speech or vision Marijuana Abuse Marijuana is the most widely used illegal drug in the [place]. It is called by various names such as pot, weed, blunts, grass, reefer, ganja, hash, hashish. It is usually smoked but can be mixed with foods or brewed as a tea. It is sometimes sold with PCP (Taqueria Dust) or amphetamine mixed in it. These drugs can cause other harmful side effects. Marijuana can cause the following effects: Changes in mood (stimulated, happy, drowsy, depressed, paranoid) Hallucinations Increased heart rate and blood pressure Increased appetite Time distortion, difficulty concentrating, impaired memory Lung damage (similar to cigarettes with chronic cough, wheezing, frequent colds and bronchitis) You can become psychologically dependent on marijuana. That means the craving to use the drug is emotional or psychological rather than due to physical withdrawal. Is Marijuana Running Your Life? Here are some of the signs: Relying on marijuana to feel good, forget problems, deal with stress or to relax Wanting to be alone most of the time or only with others who use drugs Losing interest in things that used to be important Changes in school or job performance or attendance Spending a lot of time thinking about how to get marijuana Stealing or selling your things so you can buy marijuana Unable to stop using even though you may want to quit Increasing anxiety, anger,or depression Sleeping too much, changes in eating habits (weight loss or gain) Needing to use more to get the same effect Home Care Once you have become addicted to any drug, quitting is hard to do. Most people find they can't quit without help. So, dont try to do this alone. Talk to someone you trust who can support you. Seek professional help. Avoid people and places where drugs are used. That only increases the temptation to use. Follow Up with your doctor or as advised by our staff. For more information or a referral to a treatment center in your area, contact: Your local mental health center or the National Alcohol and Substance Abuse Information Center (133)-827-8872 www.addictioncareTrochet.com National [place] on Alcoholism and Drug Dependence 028-745-KLDM www.ncadd.org Marijuana Anonymous 929-337-9962 www.marijuana-anonymous.org Get Prompt Medical Attention if any of the following occur: You feel extreme depression, fear, anxiety, or anger toward yourself or others You feel out of control You feel that you may try to harm yourself or another How To Quit Smoking Smoking is one of the hardest habits to break. About half of all those who have ever smoked have been able to quit, and most of those (about 70%) who still smoke want to quit. Here are some of the best ways to stop smoking. Keep Trying: It takes most smokers about 8 tries before they are finally able to fully quit. So, the more often you try and fail, the better your chance of quitting the next time! So, don't give up! Go Cold [place]: Most ex-smokers quit cold turkey. Trying to cut back gradually doesn't seem to work as well, perhaps because it continues the smoking habit. Also, it is possible to fool yourself by inhaling more while smoking fewer cigarettes. This results in the same amount of nicotine in your body! Get Support: Support programs can make an important difference, especially for the heavy smoker. These groups offer lectures, methods to change your behavior and peer support. Call the free national Quitline for more information. 191-OKUD-MNT (639-794-3009). Low-cost or free programs are offered by many hospitals, local chapters of the [place] [employer] (556-724-9120) and the [place] [employer] (256-591-7994). Support at home is important too. Non-smokers can help by offering praise and encouragement. If the smoker fails to quit, encourage them to try again! Ahhy-Odc-Awtwozw Medicines: For those who can't quit on their own, Nicotine Replacement Therapy (NRT) may make quitting much easier. Certain aids such as the nicotine patch, gum and lozenge are available without a prescription. However, it is best to use these under the guidance of your doctor. The skin patch provides a steady supply of nicotine to the body. Nicotine gum and lozenge gives temporary bursts of low levels of nicotine. Both methods take the edge off the craving for cigarettes. WARNING: If you feel symptoms of nicotine overdose, such as nausea, vomiting, dizziness, weakness, or fast heartbeat, stop using these and see your doctor. Prescription Medicines: After evaluating your smoking patterns and prior attempts at quitting, your doctor may offer a prescription medicine such as bupropion (Zyban, Wellbutrin), varenicline (Chantix, Champix), a niocotine inhaler or nasal spray. Each has its unique advantage and side effects which your doctor can review with you. Health Benefits Of Quitting: The benefits of quitting start right away and keep improving the longer you go without smokin minutes: blood pressure and pulse return to normal 8 hours: oxygen levels return to normal 2 days: ability to smell and taste begins to improve as damaged nerves start to regrow 2-3 weeks: circulation and lung function improves 1-9 months: decreased cough, congestion and shortness of breath; less tired 1 year: risk of heart attack decreases by half 5 years: risk of lung cancer decreases by half; risk of stroke becomes the same as a non-smoker For information about how to quit smoking, visit the following links: National Cancer Rogers , Clearing the Air, Quit Smoking Today - an online booklet. http://www.smokefree.gov/pubs/clearing_the_air.pdf Smokefree.gov http://smokefree.gov/ QuitNet http://www.quitnet.com/ Hydrocodone Bitartrate, Acetaminophen Oral tablet What is this medicine? ACETAMINOPHEN; HYDROCODONE (a set a TRINIDAD saniya fen; patrica droe KOE done) is a pain reliever. It is used to treat mild to moderate pain. How should I use this medicine? Take this medicine by mouth. Swallow it with a full glass of water. Follow the directions on the prescription label. If the medicine upsets your stomach, take the medicine with food or milk. Do not take more than you are told to take. Talk to your engineering consultant regarding the use of this medicine in children. This medicine is not approved for use in children. What side effects may I notice from receiving this medicine? Side effects that you should report to your doctor or health clinical care coordinator as soon as possible: allergic reactions like skin rash, itching or hives, swelling of the face, lips, or tongue breathing problems confusion feeling faint or lightheaded, falls stomach pain yellowing of the eyes or skin Side effects that usually do not require medical attention (report to your doctor or health clinical care coordinator if they continue or are bothersome): nausea, vomiting stomach upset What may interact with this medicine? alcohol antihistamines isoniazid medicines for depression, anxiety, or psychotic disturbances medicines for sleep muscle relaxants naltrexone narcotic medicines (opiates) for pain phenobarbital ritonavir tramadol What if I miss a dose? If you miss a dose, take it as soon as you can. If it is almost time for your next dose, take only that dose. Do not take double or extra doses. Where should I keep my medicine? Keep out of the reach of children. This medicine can be abused. Keep your medicine in a safe place to protect it from theft. Do not share this medicine with anyone. Selling or giving away this medicine is dangerous and against the law. Store at room temperature between 15 and 30 degrees C (59 and 86 degrees F). Protect from light. Keep container tightly closed. Throw away any unused medicine after the expiration date. Discard unused medicine and used packaging carefully. Pets and children can be harmed if they find used or lost packages. What should I tell my health care provider before I take this medicine? They need to know if you have any of these conditions: brain tumor Crohn's disease, inflammatory bowel disease, or ulcerative colitis drink more than 3 alcohol-containing drinks per day drug abuse or addiction head injury heart or circulation problems kidney disease or problems going to the bathroom liver disease lung disease, asthma, or breathing problems an unusual or allergic reaction to acetaminophen, hydrocodone, other opioid analgesics, other medicines, foods, dyes, or preservatives or trying to get breast-feeding What should I watch for while using this medicine? Tell your doctor or health clinical care coordinator if your pain does not go away, if it gets worse, or if you have new or a different type of pain. You may develop tolerance to the medicine. Tolerance means that you will need a higher dose of the medicine for pain relief. Tolerance is normal and is expected if you take the medicine for a long time. Do not suddenly stop taking your medicine because you may develop a severe reaction. Your body becomes used to the medicine. This does NOT mean you are addicted. Addiction is a behavior related to getting and using a drug for a non-medical reason. If you have pain, you have a medical reason to take pain medicine. Your doctor will tell you how much medicine to take. If your doctor wants you to stop the medicine, the dose will be slowly lowered over time to avoid any side effects. You may get drowsy or dizzy when you first start taking the medicine or change doses. Do not drive, use machinery, or do anything that may be dangerous until you know how the medicine affects you. Stand or sit up slowly. There are different types of narcotic medicines (opiates) for pain. If you take more than one type at the same time, you may have more side effects. Give your health care provider a list of all medicines you use. Your doctor will tell you how much medicine to take. Do not take more medicine than directed. Call emergency for help if you have problems breathing. The medicine will cause constipation. Try to have a bowel movement at least every 2 to 3 days. If you do not have a bowel movement for 3 days, call your doctor or health clinical care coordinator. Too much acetaminophen can be very dangerous. Do not take Tylenol (acetaminophen) or medicines that contain acetaminophen with this medicine. Many non-prescription medicines contain acetaminophen. Always read the labels carefully. Sulfacetamide Sodium Eye drops, solution What is this medicine? SULFACETAMIDE (sul fa SEE ta mide) is a sulfonamide antibiotic. It is used to treat eye infections. How should I use this medicine? This medicine is only for use in the eye. Do not take by mouth. Follow the directions on the prescription label. Wash hands before and after use. Tilt your head back slightly and pull your lower eyelid down with your index finger to form a pouch. Try not to touch the tip of the dropper to your eye, fingertips, or any other surface. Squeeze the prescribed number of drops into the pouch. Close the eye gently to spread the drops. Your vision may blur for a few minutes. Use your doses at regular intervals. Do not use your medicine more often than directed. Finish the full course prescribed by your doctor or health clinical care coordinator even if you think your condition is better. Talk to your engineering consultant regarding the use of this medicine in children. Special care may be needed. What side effects may I notice from receiving this medicine? Side effects that you should report to your doctor or health clinical care coordinator as soon as possible: blurred vision that does not go away burning, blistering, peeling, stinging, or itching of the eyes or eyelids, skin or mouth eye redness, swelling, or pain Side effects that usually do not require medical attention (report to your doctor or health clinical care coordinator if they continue or are bothersome): blurred vision for a few moments after application What may interact with this medicine? eye products that contain silver What if I miss a dose? If you miss a dose, use it as soon as you can. If it is almost time for your next dose, use only that dose. Do not use double or extra doses. Where should I keep my medicine? Keep out of the reach of children. Store between 2 and 30 degrees C (36 and 86 degrees F). Do not freeze. Throw away any unused eye products after the expiration date. What should I tell my health care provider before I take this medicine? They need to know if you have any of these conditions: eye injury or eye surgery an unusual or allergic reaction to sulfacetamide, sulfa drugs, other medicines, foods, dyes, or preservatives or trying to get breast-feeding What should I watch for while using this medicine? Tell your doctor or health clinical care coordinator if your symptoms do not get better in 2 to 3 days. A full course of treatment is usually 7 to 10 days. If you get any sign of an allergic reaction, stop using your eye product and call your doctor or health clinical care coordinator. Wear sunglasses if this medicine makes your eyes more sensitive to light. Keep out of the sun, or wear protective clothing outdoors and use a sunscreen. Do not use sun lamps or sun tanning beds or booths. Ibuprofen Oral tablet What is this medicine? IBUPROFEN (eye BYOO proe fen) is a non-steroidal anti-inflammatory drug (NSAID). It is used for dental pain, fever, headaches or migraines, osteoarthritis, rheumatoid arthritis, or painful monthly periods. It can also relieve minor aches and pains caused by a cold, flu, or sore throat. How should I use this medicine? Take this medicine by mouth with a glass of water. Follow the directions on the prescription label. Take this medicine with food if your stomach gets upset. Try to not lie down for at least 10 minutes after you take the medicine. Take your medicine at regular intervals. Do not take your medicine more often than directed. A special MedGuide will be given to you by the pharmacist with each prescription and refill. Be sure to read this information carefully each time. Talk to your engineering consultant regarding the use of this medicine in children. Special care may be needed. What side effects may I notice from receiving this medicine? Side effects that you should report to your doctor or health clinical care coordinator as soon as possible: allergic reactions like skin rash, itching or hives, swelling of the face, lips, or tongue black or bloody stools, blood in the urine or in vomit breathing problems changes in vision chest pain general ill feeling or flu-like symptoms nausea or vomiting redness, blistering, peeling or loosening of the skin, including inside the mouth slurred speech or weakness on one side of the body stomach pain unexplained weight gain or swelling unusually weak or tired yellowing of eyes or skin Side effects that usually do not require medical attention (report to your doctor or health clinical care coordinator if they continue or are bothersome): constipation or diarrhea dizziness gas or heartburn stomach upset What may interact with this medicine? Do not take this medicine with any of the following medications: cidofovir ketorolac methotrexate pemetrexed This medicine may also interact with the following medications: alcohol aspirin diuretics lithium other drugs for inflammation like prednisone warfarin What if I miss a dose? If you miss a dose, take it as soon as you can. If it is almost time for your next dose, take only that dose. Do not take double or extra doses. Where should I keep my medicine? Keep out of the reach of children. Store at room temperature between 15 and 30 degrees C (59 and 86 degrees F). Keep container tightly closed. Throw away any unused medicine after the expiration date. What should I tell my health care provider before I take this medicine? They need to know if you have any of these conditions: asthma cigarette smoker drink more than 3 alcohol containing drinks a day heart disease or circulation problems such as heart failure or leg edema (fluid retention) high blood pressure kidney disease liver disease stomach bleeding or ulcers an unusual or allergic reaction to ibuprofen, aspirin, other NSAIDS, other medicines, foods, dyes, or preservatives or trying to get breast-feeding What should I watch for while using this medicine? Tell your doctor or healthcare professional if your symptoms do not start to get better or if they get worse. This medicine does not prevent heart attack or stroke. In fact, this medicine may increase the chance of a heart attack or stroke. The chance may increase with longer use of this medicine and in people who have heart disease. If you take aspirin to prevent heart attack or stroke, talk with your doctor or health clinical care coordinator. Do not take other medicines that contain aspirin, ibuprofen, or naproxen with this medicine. Side effects such as stomach upset, nausea, or ulcers may be more likely to occur. Many medicines available without a prescription should not be taken with this medicine. This medicine can cause ulcers and bleeding in the stomach and intestines at any time during treatment. Ulcers and bleeding can happen without warning symptoms and can cause . To reduce your risk, do not smoke cigarettes or drink alcohol while you are taking this medicine. You may get drowsy or dizzy. Do not drive, use machinery, or do anything that needs mental alertness until you know how this medicine affects you. Do not stand or sit up quickly, especially if you are an older patient. This reduces the risk of dizzy or fainting spells. This medicine can cause you to bleed more easily. Try to avoid damage to your teeth and gums when you brush or floss your teeth. You have been given the following additional information: Corneal Foreign Body, Removed Hypertension, To Be Confirmed Marijuana Abuse Smoking Cessation Hydrocodone Bitartrate, Acetaminophen Oral tablet Sulfacetamide Sodium Eye drops, solution Ibuprofen Oral tablet Rest. Do not work for two days. (Electronically signed by Tamir Hoffman DO 04/27/2017 9:34)
--- NOTE | 2017-04-27 09:35 | ED MED RECONCILIATION SUMMARY ---
Patient: SAGRARIO TOVAR Medication Reconciliation Report [facility] VisitID: [id number] [place] [address] 46y, M Registration Date/Time: 04/26/2017 Weight: 69.8 kg Height/Length: 69 in. BMI: 22.7 ALLERGIES: No Known Drug Allergy The patient's Home Medications are listed below: CONTINUE TAKING THE FOLLOWING MEDICATIONS: Omeprazole Oral The source(s) of the original Home Medication information: patient The following Medications were given to the patient in the Emergency Department: Alcaine [Eye Drops] Eye Drops 2 drop, administered: 04/26/2017 8:03:00 PM FLUORESCEIN [EYE STRIPS] Opth soln 1 Strip, administered: 04/26/2017 8:04:00 PM TDAP [IM] IM 0.5 mL, administered: 04/26/2017 8:07:00 PM The following Medications were prescribed to the patient: Motrin (available over the counter): take according to label instructions. -- Tamir Hoffman DO Hydrocodone/APAP 5mg / 325mg: take 1-2 orally every 6 hours as needed for pain. Dispense ten (10). No refill. -- Tamir Hoffman DO Sulfacetamide ophthalmic solution 10% : Instill 2 drops into affected eye every 2 hours while awake for 1 week. Dispense fifteen (15) mL. No refills. -- Tamir Hoffman DO
--- NOTE | 2017-04-27 09:35 | ED MAR SUMMARY ---
..... Medication Administration Record [facility] [address] [place] [address] Patient: SAGRARIO TOVAR Visit ID: [id number] 46y, M Weight: 69.8 kg Height/Length: 69 in BMI: 22.7 ALLERGIES: No Known Drug Allergy Given 20:03 04/26/2017 Grant Fitzpatrick R.N. Medication Administered: ALCAINE [EYE DROPS] (PROPARACAINE HCL), Dose: 2 drop Eye Drops. Medication Ordered: Alcaine Eye Drops (Solution 0.5 %) 2 drops (NOW, affected eye, left eye). Given 20:04 04/26/2017 Grant Fitzpatrick R.N. Medication Administered: FLUORESCEIN [EYE STRIPS], Dose: 1 Strip Opth soln. Medication Ordered: Fluorescein Eye Strips 1 strips (NOW). Given 20:07 04/26/2017 Grant Fitzpatrick R.N. Medication Administered: TDAP [IM], Dose: 0.5 mL IM. Medication Ordered: Tdap IM 0.5 mL (NOW, per protocol).
--- NOTE | 2017-04-27 09:35 | ED MAR SUMMARY ---
..... Medication Administration Record [facility] [address] [place] [address] Patient: SAGRARIO TOVAR Visit ID: [id number] 46y, M Weight: 69.8 kg Height/Length: 69 in BMI: 22.7 ALLERGIES: No Known Drug Allergy Given 20:03 04/26/2017 Grant Fitzpatrick R.N. Medication Administered: ALCAINE [EYE DROPS] (PROPARACAINE HCL), Dose: 2 drop Eye Drops. Medication Ordered: Alcaine Eye Drops (Solution 0.5 %) 2 drops (NOW, affected eye, left eye). Given 20:04 04/26/2017 Grant Fitzpatrick R.N. Medication Administered: FLUORESCEIN [EYE STRIPS], Dose: 1 Strip Opth soln. Medication Ordered: Fluorescein Eye Strips 1 strips (NOW). Given 20:07 04/26/2017 Grant Fitzpatrick R.N. Medication Administered: TDAP [IM], Dose: 0.5 mL IM. Medication Ordered: Tdap IM 0.5 mL (NOW, per protocol).
--- NOTE | 2017-04-27 09:35 | ED MED RECONCILIATION SUMMARY ---
Patient: SAGRARIO TOVAR Medication Reconciliation Report [facility] VisitID: [id number] [place] [address] 46y, M Registration Date/Time: 04/26/2017 Weight: 69.8 kg Height/Length: 69 in. BMI: 22.7 ALLERGIES: No Known Drug Allergy The patient's Home Medications are listed below: CONTINUE TAKING THE FOLLOWING MEDICATIONS: Omeprazole Oral The source(s) of the original Home Medication information: patient The following Medications were given to the patient in the Emergency Department: Alcaine [Eye Drops] Eye Drops 2 drop, administered: 04/26/2017 8:03:00 PM FLUORESCEIN [EYE STRIPS] Opth soln 1 Strip, administered: 04/26/2017 8:04:00 PM TDAP [IM] IM 0.5 mL, administered: 04/26/2017 8:07:00 PM The following Medications were prescribed to the patient: Motrin (available over the counter): take according to label instructions. -- Tamir Hoffman DO Hydrocodone/APAP 5mg / 325mg: take 1-2 orally every 6 hours as needed for pain. Dispense ten (10). No refill. -- Tamir Hoffman DO Sulfacetamide ophthalmic solution 10% : Instill 2 drops into affected eye every 2 hours while awake for 1 week. Dispense fifteen (15) mL. No refills. -- Tamir Hoffman DO
== END 2017-04-26 20:24 | disposition home or self-care (01) ==
LOC: ED SRH 19:28
DX: T15.02XA Foreign body in cornea, left eye, initial encounter (principal); X58.XXXA Exposure to other specified factors, initial encounter; Y93.89 Activity, other specified; Y99.0 Civilian activity done for income or pay; Y92.89 Other specified places as the place of occurrence of the external cause; F17.210 Nicotine dependence, cigarettes, uncomplicated; Z23 Encounter for immunization; Z79.899 Other long term (current) drug therapy